=== PATIENT | male | born 1940 | race Caucasian/White ===

== ENCOUNTER → 2024-01-12 14:58 | Outpatient (CLI) | payer OTHER, SELFPAY ==
--- NOTE | 2024-01-12 14:59 | DI.MRI.S_ITS ---
PROCEDURE: MR BRAIN (IAC) WWO CON INDICATIONS: Sensorineural hearing loss, bilateral TECHNIQUE: Noncontrast sagittal T1 spin echo, axial FLAIR, axial gradient echo, axial diffusion and ADC through the brain. Axial thin-slice 3D CISS, coronal TruFISP, axial T1 spin echo with fat saturation through the internal auditory canals. After the administration of contrast, thin slice axial and coronal T1 spin echo with fat saturation through the internal auditory canals, and axial and coronal and sagittal T1 spin echo with fat saturation through the brain. COMPARISON: None. FINDINGS: Image quality: Excellent. Cerebellopontine angles: No cerebellopontine angle masses. Inner ear structures appear normally formed. No suspicious enhancement in the internal auditory canal or along the course of the 7th cranial nerve. CSF spaces: Ventricles are normal in size and shape. No extra-axial fluid collections. Basal cisterns are patent. Brain: No intracranial bleeds or mass effects. [place]-white matter interface is intact. No abnormal intracranial enhancement. Diffusion weighted images demonstrate no acute ischemic insults. Brainstem appears normal. Normal intravascular flow voids are present. Note is made of age-appropriate brain parenchymal volume loss and chronic small vessel ischemic changes. Skull and face: Calvarial marrow signal is normal. Orbits appear normal. Sinuses: Sinuses and mastoids are clear. IMPRESSION: No significant abnormality is seen. Specifically, no masses or abnormal enhancement are seen within the cerebellopontine angle cisterns or within the internal auditory canals. No prior territorial infarct can be seen. Dictated by: Jesus Mejia M.D. on 01/12/2024 at 18:02 Approved by: Jesus Mejia M.D. on 01/12/2024 at 18:03
== END ==
PROVIDERS: PCP Family Medicine; Referring Provider Otolaryngology; Visit Provider Otolaryngology
DX: H90.3 Sensorineural hearing loss, bilateral (principal); H93.8X1 Other specified disorders of right ear
CPT/HCPCS: 70553